=== PATIENT | male | born 1950 | race Caucasian/White ===

== ENCOUNTER 2024-03-22 11:30 | Day surgery (SDC) | payer OTHER, SELFPAY ==
[2024-03-22 12:04] VITALS: BP 136/86; PULSE 97; RESP 20; TEMP 37.6; O2SAT 93; BMI 23.3
[2024-03-22 12:21] LABS: INR 1.26 (0.8-1.2)
--- NOTE | 2024-03-22 12:27 | US_ITS ---
WS: [id number] ULTRASOUND-GUIDED PARACENTESIS CLINICAL INFORMATION: ascites COMPARISON: None. Procedure Informed consent: The risks, benefits, and alternatives of the procedure were discussed with the devon ent. Verbal and written consent was obtained. Timeout: A timeout was performed to confirm the correct patient, procedure, and site. Preparation: A suitable skin site was identified. The patient was prepped and draped in usual sterile fashion. Lidocaine 1% was used for local anesthesia. Catheter: 4 [place] One-step Yueh catheter. Side: RIGHT lower quadrant. Fluid Volume: 7800 ml Color: Clear yellow DISPOSITION: Discarded safely. Complications: None. Patient disposition: Discharged from the department in stable condition. US/US paracentesis abd w [id number] IMPRESSION: Uncomplicated ultrasound-guided paracentesis. Removal of 7800 cc
--- NOTE | 2024-03-22 12:57 | PC.NURSE ---
10 ml lidocaine 1% used for procedure.
--- NOTE | 2024-03-22 13:44 | PC.NURSE ---
1335 procedure complete. pt sitting on side of bed. coughing, denies dizziness. drinking orange juice. spouse at bedside. blood pressure 102/54 p 87 r 18 sat 96%.
[2024-03-22 13:50] VITALS: BP 107/67; PULSE 90; RESP 18; O2SAT 96
== END 2024-03-22 13:57 | disposition home or self-care (01) ==
PROVIDERS: Radiology Neuroradiology; Visit Provider Family Medicine
PROC: (CPT 49082; principal; 2024-03-22 12:00)
DX: R18.8 Other ascites (principal)
CPT/HCPCS: 36415; 49083; 85610